=== PATIENT | male | born 1980 | race Caucasian/White ===

== ENCOUNTER 2016-06-02 18:30 | Emergency (ER) | payer MEDICAID ==
[~2016-06-02 18:30] MED LIST: ACETYLCYSTE; ACIDOPHILUS1 EAC3 GT; ALBUTEROL INH 0.3 ML AERO NEB; ALBUTEROL0.63 MG/1 INH; ALLERGY RELIEF10 M2 PO; ALLERGY RELIEF10 M4 GT; ALLERGY10 M3 GT; ATIVAN1 M2 PO; AVELOX400 MG PO; AZITHROMYCIN250 M1 PO; BIAXIN500 MG PO; CILOXAN3.5 GM; CLARITIN10 MG; COLACE100 M1 GT; CONSTULOSE10 GM/15 M GT; DIAPER RASH57 GM TP; ELIQUIS5 M1 GT; EXPECTORAN100 MG/52 GT; FLOVENT RO50 MCG/DIS; FLUTICASONE PRO16 G1; FLUTICASONE PRO16 GM NS; FLUTICASONE PROPIONATE; JEVITY 1.5 CA1000 ML GT; KEPPRA1000 M1 GT; KEPPRA500 M3 GT; KEPPRA500 M3 PO; KEPPRA500 MG; KEPPRA500 MG PO; KRISTALOSE20 GM GT; KRISTALOSE20 GM PO; LACTULOSE20 GM/30 M GT; LEVAQUIN250 MG PO; LEVAQUIN500 MG PO; LEVAQUIN750 M1 GT; LEVAQUIN750 M1 PO; LEVAQUIN750 MG PO; MELATONIN3 M4 GT; MEPHYTON5 MG; MUCINEX1200 MG/BO; MUCINEX600 M1 GT; MUCINEX600 MG PO; MUCOMYST 20% INH4 ML AERO NEB; MUCOMYST200 MG/ML; MULTIVITAMIN1 CAP; MULTIVITAMIN1 TAB; MULTIVITAMIN1 TAB PO; MULTIVITAMINS1 EAC6 GT; NASONEX17 GM; PATADAY2.5 M1 OP; PATANOL5 ML; PATANOL5 ML OP; PHENOBARBI20 MG/5 ML; PHENOBARBITAL15 MG; PROMETHAZINE HC25 M3 GT; PROVENTIL0.83 MG/ML; SINGULAIR10 M1 GT; SINGULAIR10 MG; SINGULAIR10 MG PO; STOOL SOFT50 MG/5 ML GT; TAMIFLU75 MG; TAMIFLU75 MG PO; TOBREX 0.3% OP3.5 GM OP; TOBREX3.5 G1 EACH EYE; TOPAMAX25 M2 GT; TOPAMAX25 MG PO; TOPAMAX50 MG; TOPAMAX50 MG PO; VICKS VAPORUB O50 G1; XOPENEX; XOPENEX1.25 MG/3; ZINC OXIDE30 GM; ZITHROMAX250MG Z-PAK PO; ZYRTEC-D T1 TAB.SR .; ZYRTEC10 M
[2016-06-03] MEDS ORDERED: [UNRECOGNIZED DRUG - REMARK] (14:35)
[2016-10-01] MEDS ORDERED: ISOSOURCE 1.5250 ML GT (20:36)
[2016-10-01] MEDS ORDERED: LACRILUBE (20:36)
[2016-10-01] MEDS ORDERED: ZYRTEC10 M7 PO (20:37)
[2016-10-01] MEDS ORDERED: ERYTHROMYCIN1 GM OP (20:38)
== END 2016-06-02 20:48 ==
LOC: EDMED 18:30
PROC: 0D20XUZ Change Feeding Device in Upper Intestinal Tract, External Approach (ICD-10-PCS; principal; 2016-06-02)
DX: K94.23 Gastrostomy malfunction (principal)

== ENCOUNTER 2016-06-04 07:13 | Day surgery (SDC) | payer MEDICAID ==
[~2016-06-04 07:13] MED LIST changes: +[UNRECOGNIZED DRUG - REMARK]
[2016-06-04 08:46] LABS: BASO % 0.2 % (0-2); EOS % 1.9 % (0-7); EOSINOPHIL ABSOLUTE COUNT 0.1 tho/cmm (0.0-0.7); HCT-HEMATOCRIT 48.4 % (36.0-53.5); HGB-HEMOGLOBIN 16.7 gm/dl (13.5-17.0); IMMATURE GRANULOCYTES ABSOLUTE 0.01 tho/cmm (0-0.03); IMMATURE GRANULOCYTES PERCENT 0.2 % (0-0.3); LYMPH % 23.8 % (20-45); LYMPH ABSOLUTE COUNT 1.1 tho/cmm (0.8-4.5); MCH (MEAN CORPUSCULAR HGB) 32.2 pg (28.0-32.0); MCHC MEAN CORPUSCULAR HGB CONC 34.5 % (32.0-36.0); MCV (MEAN CELL VOLUME) 93.4 fl (82.0-96.0); MEAN PLATELET VOLUME 12.5 cmc (9.4-12.4); MONO % 12.2 % (0-12); MONOCYTE ABSOLUTE COUNT 0.6 tho/cmm (0.0-1.2); NEUTROPHIL ABSOLUTE COUNT 2.9 tho/cmm (1.6-8.0); NEUTROPHIL-AUTOMATED 2.9 tho/cmm (1.6-8.0); NEUTROPHILS % 61.7 % (40-80); PLATELET COUNT 130 tho/cmm (150-450); RED BLOOD COUNT 5.18 mil/cmm (4.40-5.70); RED CELL DISTRIBUTION WIDTH 12.3 % (12.4-16.4); WHITE BLOOD COUNT 4.7 tho/cmm (4.0-10.0)
[2016-06-04 08:59] LABS: PROTHROMBIN TIME 11.8 SECONDS (9.0-13.6)
[2016-06-04 09:10] LABS: ALB/GLOB RATIO 0.8 (0.8-2.0); ALBUMIN 3.9 g/dl (3.5-5.0); ALKALINE PHOSPHATASE 159 U/L (33-138); ALT/SGPT 136 U/L (12-78); ANION GAP 12 mmol/L (0-20); AST/SGOT 69 U/L (10-40); BILIRUBIN,TOTAL 0.5 mg/dl (0.0-1.5); BLOOD UREA NITROGEN 16 mg/dl (6-24); CALCIUM 9.3 mg/dl (8.5-10.5); CARBON DIOXIDE-VENOUS 26 mmol/L (22-32); CHLORIDE 107 mmol/l (96-110); CREATININE 0.79 mg/dl (0.60-1.30); GLUCOSE 78 mg/dL (70-110); SODIUM 141 mmol/L (135-145); eGFR VALUE FOR BLACK >90 mL/Min
[2016-10-01] MEDS ORDERED: ISOSOURCE 1.5250 ML GT (20:36)
[2016-10-01] MEDS ORDERED: LACRILUBE (20:36)
[2016-10-01] MEDS ORDERED: ZYRTEC10 M7 PO (20:37)
[2016-10-01] MEDS ORDERED: ERYTHROMYCIN1 GM OP (20:38)
== END 2016-06-04 10:15 ==
LOC: ENDOS 07:13 → SHSC 07:14 → ENDOS 09:00
PROVIDERS: Internal Medicine Gastroenterology
PROC: 0DH63UZ Insertion of Feeding Device into Stomach, Percutaneous Approach (ICD-10-PCS; principal; 2016-06-04)
DX: Z43.1 Encounter for attention to gastrostomy (principal); J45.909 Unspecified asthma, uncomplicated; G40.909 Epilepsy, unspecified, not intractable, without status epilepticus; Z98.890 Other specified postprocedural states; Z88.0 Allergy status to penicillin; Z88.2 Allergy status to sulfonamides; Z88.1 Allergy status to other antibiotic agents; Z88.8 Allergy status to other drugs, medicaments and biological substances; Z79.899 Other long term (current) drug therapy
CPT/HCPCS: J3370

== ENCOUNTER 2016-06-28 11:35 | Emergency (ER) | payer MEDICAID ==
[2016-06-28] MEDS ORDERED: ACIDOPHILUS PR1 EAC1 GT (13:52)
[2016-06-28] MEDS ORDERED: FLONASE ALLERG9.9 ML (13:53)
[2016-06-28] MEDS ORDERED: KEPPRA1000 M1 GT (13:54)
[2016-06-28] MEDS ORDERED: ENULOSE10 GM/151 GT (13:54)
[2016-06-28] MEDS ORDERED: KEPPRA500 M3 GT (13:54)
[2016-06-28] MEDS ORDERED: MELATIN3 MG GT (13:55)
[2016-06-28] MEDS ORDERED: CLARITIN10 M6 GT (13:55)
[2016-06-28] MEDS ORDERED: PATADAY2.5 M1 OP (13:55)
[2016-06-28] MEDS ORDERED: SINGULAIR10 M1 GT (13:55)
[2016-06-28] MEDS ORDERED: PROMETHAZINE HC25 M3 GT (13:56)
[2016-06-28] MEDS ORDERED: SILACE50 MG/5 ML GT (13:56)
[2016-06-28] MEDS ORDERED: TAB-A-VITE1 EAC1 GT (13:56)
[2016-06-28] MEDS ORDERED: TOBREX3.5 G1 OP (13:57)
[2016-06-28] MEDS ORDERED: TOPAMAX100 M2 GT (13:57)
[2016-06-28] MEDS ORDERED: TOPAMAX50 M3 GT (13:57)
[2016-06-28] MEDS ORDERED: VICKS VAPORUB O50 G1 TP (13:59)
[2016-06-28] MEDS ORDERED: ZINC OXIDE30 G1 TP (14:00)
[2016-06-28] MEDS ORDERED: ALBUTEROL2.5 MG/3 M INH ×2 (14:00→14:02)
[2016-06-28] MEDS ORDERED: ACETAMINOPHEN650 MG PR (14:01)
[2016-06-28] MEDS ORDERED: BISCOLAX10 MG PR (14:02)
[2016-06-28] MEDS ORDERED: LOTRIMIN AF12 GM TP (14:03)
[2016-06-28] MEDS ORDERED: KETOTIFEN FUMARA5 M1 OP (14:04)
[2016-06-28] MEDS ORDERED: REFRESH LACRI-3.5 GM OP (14:06)
[2016-06-28] MEDS ORDERED: TUSSIN DM SYRU GT (14:07)
[2016-06-28 14:19] LABS: URINE BILIRUBIN NEGATIVE (NEG); URINE BLOOD MODERATE (NEG); URINE GLUCOSE (UA) NEGATIVE (NEG); URINE KETONE NEGATIVE (NEG); URINE LEUKOCYTE ESTERASE POSITIVE (NEG); URINE NITRITE NEGATIVE (NEG); URINE PROTEIN NEGATIVE (NEG)
[2016-06-28 14:21] LABS: URINE APPEARANCE HAZY; URINE COLOR YELLOW
[2016-06-28 14:38] LABS: URINE BACTERIA 1+; URINE EPITHELIAL CELLS 0-1 /[HPF] (0-10)
[2016-06-28 14:39] LABS: URINE AMORPHOUS 2+
[2016-06-28] MEDS ORDERED: CIPROFLOXA250 MG/5 M PO (14:59)
[2016-10-01] MEDS ORDERED: LACRILUBE (20:36)
[2016-10-01] MEDS ORDERED: ISOSOURCE 1.5250 ML GT (20:36)
[2016-10-01] MEDS ORDERED: ZYRTEC10 M7 PO (20:37)
[2016-10-01] MEDS ORDERED: ERYTHROMYCIN1 GM OP (20:38)
== END 2016-06-28 17:18 ==
LOC: EDMED 11:35
PROVIDERS: Emergency Medicine
DX: N39.0 Urinary tract infection, site not specified (principal); Z88.2 Allergy status to sulfonamides; Z88.0 Allergy status to penicillin; Z88.1 Allergy status to other antibiotic agents
CPT/HCPCS: P9612